=== PATIENT | male | born 1980 | race Caucasian/White ===

== ENCOUNTER 2018-09-18 15:44 | Emergency (ER) | payer OTHER ==
[2018-09-18 15:52] VITALS: BP 133/81; PULSE 90; RESP 18; TEMP 98.4
[2018-09-18] MEDS ORDERED: cefTRIAXone 1,000 MG VIAL (IM USE) IM STA (16:15)
[2018-09-18] MEDS ORDERED: Acetaminophen-Codeine 300-30mg TAB PO STA (16:29)
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
== END 2018-09-18 16:49 | disposition home or self-care (01) ==
LOC: EC 15:44
DX: K04.7 Periapical abscess without sinus (principal); K08.89 Other specified disorders of teeth and supporting structures; F17.200 Nicotine dependence, unspecified, uncomplicated; Z79.899 Other long term (current) drug therapy; Z91.040 Latex allergy status; Z88.8 Allergy status to other drugs, medicaments and biological substances
CPT/HCPCS: 99283; 96372; J0696

== ENCOUNTER 2019-01-13 23:02 | Emergency (ER) | payer OTHER ==
[2019-01-13 23:40] VITALS: BP 121/86; PULSE 98; RESP 20; TEMP 98.8
[2019-01-14] MEDS ORDERED: PROPARACAINE 0.5% OPHTH DROPS 15 ML BTL LEFT EYE STA (01:02)
[2019-01-14] MEDS ORDERED: LIDOCAINE 1% INJ 10MG/ML (20 ML MDV) SQ ONE (01:02)
[2019-01-14] MEDS ORDERED: HYDROcodone/APAP 5-325MG 1 EACH TAB PO STA (01:09)
--- NOTE | 2019-01-14 01:37 | CT ---
EXAM: CT Maxillofacial Without Intravenous Contrast CLINICAL HISTORY: ITS.REASON CT Reason: Pain TECHNIQUE: Axial computed tomography images of the face without intravenous contrast. This CT exam was performed using one or more of the following dose reduction techniques: automated exposure control, adjustment of the mA and/or kV according to patient size, and/or use of iterative reconstruction technique. COMPARISON: No relevant prior studies available. FINDINGS: Bones/joints: No acute fracture. Soft tissues: Left maxillary soft tissue swelling. Orbits: Unremarkable. Sinuses: No air-fluid levels. IMPRESSION: Left maxillary soft tissue swelling. No fracture.
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
== END 2019-01-14 02:52 | disposition home or self-care (01) ==
LOC: EC 23:02
DX: S05.42XA Penetrating wound of orbit with or without foreign body, left eye, initial encounter (principal); F17.200 Nicotine dependence, unspecified, uncomplicated; Z79.899 Other long term (current) drug therapy; Z91.040 Latex allergy status; Z91.048 Other nonmedicinal substance allergy status; Z86.14 Personal history of Methicillin resistant Staphylococcus aureus infection; W20.8XXA Other cause of strike by thrown, projected or falling object, initial encounter; Y93.89 Activity, other specified
CPT/HCPCS: 70486; 99283; 12011; J2001